=== PATIENT | female | born 1955 | race Caucasian/White ===

== ENCOUNTER 2024-12-14 13:00 | Outpatient (RCR) | payer MEDICARE, SELFPAY ==
--- NOTE | 2024-11-16 12:34 | PT.OPE ---
[facility] PT [facility] Outpatient Eval Start: 11/16/24 08:32 Freq: Status: Active Protocol: Document 11/16/24 12:33 CJT (Rec: 11/16/24 12:34 CJT [id number]) E-signed By Demetrius Hicks PT Physical Therapy Outpatient Evaluation Insurance Information Recert Due Date 02/14/25 Insurance Name Medicare B Medical Diagnosis Thoracic back pain Lumbar back pain Treating Diagnosis M54.6 - thoracic pain M54.5 - low back pain Referring MD Leos, Trevor CHE Subjective Preferred Name Nikole Subjective Pt presents with complaints of back pain. Pt repots that in June she fell off the railing of her porch and onto her back. Fell on a metal baking do. Notes a burning and sharp/shooting pain in her mid back on the L. Pt points from her L PSIS to her L mid-thoracic paraspinals as the source of her pain. Transferring from sitting to standing causes increased pain as well as reaching overhead. Sleeping on her R side causes increased pain in her L back. Notes relief of pain with laying on her L side. Pt also notes pain extended into her L buttock. Notes that this pain is there all the time. The pain does not extend beyond her L knee. Pt does note that she is planning to have her L knee replaced. Pain Comments Current Work Status Retired Precautions Therapy Limitations/ Not Limited Systems Review Objective Other/Pertinent Thoracic AROM Objective Flexion: max limitations due to scoliosis Extension: max limitations due to scoliosis Rotation: max limitations L, moderate limitations R Side bending: max limitations L, moderate limitations R Lumbar AROM Flexion: max limitations, pt able to reach toes but all trunk flexion comes from hips Extension: max limitations Rotation: moderate limitations bilaterally, pain noted in L thoracic region with rotation to L Sidebending: max limitations leaning to L; no limitations leaning to R; limitations to L likely due to scoliosis R hip flexion: 4+ R knee flexion: 4+ R knee extension: 4+ R ankle DF: 3+ L hip flexion: 4 L knee flexion: 4 L knee extension: 4+ L ankle DF: 4+ Slump test: negative B Posture: pt demos clear signs of L scoliosis in standing and in hinge position Palpation: pt notes TTP at L QL, obliques Assessment Assessment/ Nikole is a very pleasant 69 year old female who presents Impression to our clinic for evaluation and treatment of back pain. Pt has significant L scoliosis curvature that limits her ability to flex and extend her spine as well as sidebend and rotate to L side. I do think Nikole will make good progress with consistent performance of mobility and stretching exercises, as she has not been moving her spine much since her fall in June of this year. The nature of the pts condition was explained and all questions were answered to the pts satisfaction. Skilled PT services are medically necessary to address deficits and return patient to highest level of function. Recommend physical therapy sessions every other/week for 4-6 weeks. Pt agrees with this plan. Printout of HEP was given for I completion and pt gives verbal understanding of each exercise. Primary Functional Standing, walking, lifting, reaching Limitations Plan of Care Rehabilitation [facility] - To be completed in 4 weeks: Goals 1. Pt will report reduction in back pain by factor of 2 so that she may perform her ADLs with reduced use of pain meds LTG - To be completed in 6 weeks: 1. Pt to be I with HEP so that they may I manage progression of symptoms. 2. Pt will report ability to lift objects from style advisor to upper cabinets in kitchen without increased pain so that she may perform this chore to reduce burden on son. Treatment Plan/ Heat,Joint Mobilization,Manual Therapy,Neuromuscular Re Direct Interventions -ed,Self-Care/Home Management,Therapeutic Activities, Therapeutic Exercises Frequency/Duration every other week for 4-6 weeks Patient Will Be Completion of LTG(s),Skills Plateau,Independent w/HEP, Discharged From Independently Progressing Therapy Evaluation Billing Untimed Code 25 Treatment Minutes PT Eval No Charge No Complexity Low Certification Information Initial 11/16/24 Certification Date Ending Certification 02/14/25 Date Provider Signature Yes Required Provider Signature POC & Medical Necessity Shows Agreement With Physician NPI Number Write NPI# Here Physician Comment/ : Change Physician Signature Please Sign/Date Here & Date Requested
== END 2025-03-13 09:07 | disposition home or self-care (01) ==
PROVIDERS: PCP Internal Medicine; Visit Provider Internal Medicine
DX: M54.6 Pain in thoracic spine (principal); M54.50 Low back pain, unspecified; Z51.89 Encounter for other specified aftercare
CPT/HCPCS: 97110; 97140; 97161